=== PATIENT | male | born 1940 | race Caucasian/White ===

== ENCOUNTER 2018-11-30 09:01 | Day surgery (SDC) | payer MEDICARE ==
[2018-11-30] MEDS ORDERED: LIDOCAINE 2% MDV (20MG/ML) 20ML VIAL IV ONE (09:02)
[2018-11-30] MEDS ORDERED: PROPOFOL 10 MG/ML VIAL IV ONE (09:02)
--- NOTE | 2018-12-03 08:30 | Operative Note ---
DATE OF SURGERY: 11/30/2018 SURGEON: Marie Sanchez MD OPERATION: COLONOSCOPY. INDICATIONS: This is a 78-year-old male with history of colon polyps who had bloody stool and now presents for colonoscopy. POSTOPERATIVE DIAGNOSES: 1. Two 6-8 mm sessile polyps in the cecum that were removed by cold snare. 2. Two 6-8 mm sessile polyps in the ascending colon that were removed by cold snare. 3. Three 8 mm descending colon polyps that were also removed by cold snare. 4. A 1.5 cm rectal mass that was lifted with ink spot and subsequently removed with snare cautery. ANESTHESIA: Sedation is per Anesthesia. Pulse oximetry was monitored throughout the procedure to maintain O2 saturation of 90% or greater. Supplemental oxygen was administered via nasal cannula. Cardiac and vital signs were monitored throughout the duration of the procedure, and they were stable. The procedure of colonoscopy and risks and alternatives of the procedure, including the risk of bleeding and perforation, among others, were explained to the patient who voiced understanding and agreed to have the procedure done. Physical examination was performed, and the patient was found stable for sedation. PROCEDURE: The patient was placed in the left lateral position. Sedation was initiated. A digital rectal exam was performed and showed some mild external hemorrhoids with palpable rectal nodule. An Olympus PCF-180AL colonoscope was then inserted into the rectum under direct visualization. It was advanced to the cecum without difficulty. The ileocecal valve and appendiceal orifice were identified and photographed. The colonic mucosa was carefully examined upon introduction of the colonoscope. In the cecum were two 6-8 mm sessile polyps that were noted and they were removed by cold snare. In the ascending colon were also two 6-8 mm sessile polyps that were noted and were removed by cold snare. The colonoscope was then withdrawn while carefully examining the colonic mucosal surfaces after the ileocecal valve was intubated and inspected for about 10 cm and it was normal. The rest of the cecum and ascending colon and transverse colon mucosa appeared normal. In the descending colon were three 8 mm sessile polyp that were noted and they were removed by cold snare. The rest of the descending and sigmoid colon mucosa appeared normal except for occasional diverticulosis. In the rectum, upon retroflexion was a 1.5 cm mass lesion that was noted. Using an injection needle, the lesion was lifted with ink and subsequently removed with snare cautery with no immediate complications. The colonoscope was then withdrawn and the procedure was terminated. The patient tolerated the procedure well without any immediate complications. The patient remained with stable vital signs and was transferred to the recovery room. RECOMMENDATIONS: 1. The patient should stay on a low-residue diet for 2 weeks and thereafter is to be on a high-fiber diet. 2. The patient is to have a repeat colonoscopy as needed. Thank you for allowing me to participate in the care of your patient. CC: MD JACQUELINE Colon
== END 2018-11-30 11:40 | disposition home or self-care (01) ==
LOC: HOP 09:01
PROVIDERS: ATTEND Internal Medicine Gastroenterology
DX: K92.1 Melena (principal); Z86.010 Personal history of colon polyps; D12.2 Benign neoplasm of ascending colon; D12.0 Benign neoplasm of cecum; D12.4 Benign neoplasm of descending colon; K62.89 Other specified diseases of anus and rectum; I10 Essential (primary) hypertension